=== PATIENT | female | born 1985 | race Caucasian/White ===

== ENCOUNTER 2017-04-03 20:18 | Emergency (ER) | payer OTHER ==
[~2017-04-03] VITALS: Ht 160 cm; Wt 77.3 kg
[~2017-04-03 20:18] MED LIST: BACTRIM DS TABL1 TAB PO; BIRTH CONTROL PILL PO; KEFLEX PO; MACROBID100 M1 PO; MUCINEX DM1 TAB.SR . PO; NO MEDICATIONS; PRENATAL1 TA1 PO; ULTRAM PO; ZOFRAN PO
[2017-04-03 21:22] LABS: URINE SOURCE CLEAN CATCH
[2017-04-03 21:26] LABS: URINE APPEARANCE SL CLOUDY; URINE BILIRUBIN NEG (NEG); URINE BLOOD NEG (NEG); URINE COLOR YELLOW; URINE GLUCOSE NEG (NORM); URINE KETONE NEG (NEG); URINE LEUKOCYTE ESTERASE 1+ (NEG); URINE NITRATE NEG (NEG); URINE PH 6.5 (5-8); URINE PROTEIN NEG (NEG)
[2017-04-03 21:28] LABS: MICRO INDICATED? YES
[2017-04-03 21:34] LABS: CULTURE INDICATED? YES; URINE AMORPHOUS SEDIMENT AMORP URATES; URINE BACTERIA 2+ (NEG); URINE MUCUS PRESENT; URINE SQUAMOUS EPITHELIAL CELL MANY /[HPF]; URINE WBC 50-100 /[HPF] (0-5)
[2017-04-07 00:04] LABS: CHLAMYDIA TRACH Not Detected (Not Detected); N GONOR Not Detected (Not Detected)
== END 2017-04-03 23:01 | disposition home or self-care (01) ==
LOC: SED 20:18
PROVIDERS: Emergency Medicine
DX: N76.0 Acute vaginitis (principal); B96.89 Other specified bacterial agents as the cause of diseases classified elsewhere; Z98.51 Tubal ligation status
CPT/HCPCS: 81003; 84703; 87086; 87210; 87491; 87591; 87808; 87905; 99284